=== PATIENT | male | born 1975 | race Caucasian/White ===

== ENCOUNTER 2023-10-08 10:17 | Emergency (ER) | payer BC ==
[2023-10-08 11:28] VITALS: TEMP 98.1
--- NOTE | 2023-10-08 11:51 | ED ---
General Adult HPI - General Chief complaint: GI Bleed Stated complaint: Rectal bleeding Time Seen by Provider: 10/08/23 11:50 Source: patient, RN notes reviewed Mode of arrival: ambulatory Limitations: no limitations - History of Present Illness Initial comments: 47-year-old male presenting to the ER with chief complaint of rectal bleeding. Patient states this morning while having a bowel movement he noticed bright red blood and clots in the toilet. He denies any pain or straining bowel movement. No blood thinner use. Patient states he went to put on his work attire which include khaki pants. He states blood soaked through his pants. He think it is a hemorrhoid but denies any history of hemorrhoids. Denies any chest pain, shortness of breath, abdominal pain, urinary complaints constipation/diarrhea. - Related Data Previous Rx's Medication Instructions Recorded Lidocaine Viscous 2% [Xylocaine 1 ml MUCOUS MEM DAILY #15 ml 10/08/23 Viscous] Allergies Allergy/AdvReac Type Severity Reaction Status Date / Time No Known Allergies Allergy Verified 10/08/23 11:41 Review of Systems ROS Statement: Those systems with pertinent positive or pertinent negative responses have been documented in the HPI. ROS Other: All systems not noted in ROS Statement are negative. Past Medical History Past Medical History: No Reported History History of Any Multi-Drug Resistant Organisms: None Reported Past Surgical History: Tonsillectomy Past Psychological History: No Psychological Hx Reported Smoking Status: Never smoker Past Alcohol Use History: None Reported Past Drug Use History: None Reported General Exam Limitations: no limitations General appearance: alert, in no apparent distress Head exam: Present: atraumatic, normocephalic, normal inspection Respiratory exam: Present: normal lung sounds bilaterally. Absent: respiratory distress, wheezes, rales, rhonchi, stridor Cardiovascular Exam: Present: regular rate, normal rhythm, normal heart sounds. Absent: systolic murmur, diastolic murmur, rubs, gallop, clicks GI/Abdominal exam: Present: soft, normal bowel sounds. Absent: distended, tenderness, guarding, rebound, rigid Rectal exam: Present: normal rectal tone, hemorrhoids (Thrombosed external hemor rhoid) Neurological exam: Present: alert, oriented X3, CN II-XII intact Skin exam: Present: warm, dry, intact, normal color. Absent: rash Course Vital Signs 10/08/23 10/08/23 10:43 12:27 Temperature 98.1 F Pulse Rate 72 78 Respiratory 16 18 Rate Blood Pressure 153/88 129/70 O2 Sat by Pulse 95 98 Oximetry Medical Decision Making - Medical Decision Making Was pt. sent in by a medical professional or institution (, PA, SYSTEM DEVELOPMENT ENGINEER, urgent care, hospital, or [facility]...) When possible be specific @ -No Did you speak to anyone other than the patient for history (EMS, parent, family, police, friend...)? What history was obtained from this source @ -No Did you review nursing and triage notes (agree or disagree)? Why? @ -I reviewed and agree with nursing and triage notes Were old charts reviewed (outside hosp., previous admission, EMS record, old EKG, old radiological studies, urgent care reports/EKG's, [facility] records)? Report findings @ -No old charts were reviewed Differential Diagnosis (chest pain, altered mental status, abdominal pain women, abdominal pain men, vaginal bleeding, weakness, fever, dyspnea, syncope, headache, dizziness, GI bleed, back pain, seizure, CVA, palpatations, mental health, musculoskeletal)? @ -Differential GI Bleed: Esophageal varices, aortoenteric fistula, Louise- Ruiz, gastritis, peptic ulcer disease, diverticulosis, inflammatory bowel disease, hemorrhoids, fissure, colitis, malignancy, Meckels diverticulum, this is not meant to be an all-inclusive list. EKG interpreted by me (3pts min.). @ -None X-rays interpreted by me (1pt min.). @ -None done CT interpreted by me (1pt min.). @ -None done U/S interpreted by me (1pt. min.). @ -None done What testing was considered but not performed or refused? (CT, X-rays, U/S, labs)? Why? @ -None What meds were considered but not given or refused? Why? @ -None Did you discuss the management of the patient with other professionals (professionals i.e. , PA, SYSTEM DEVELOPMENT ENGINEER, lab, RT, psych nurse, school social worker, oil burner, teacher, chief merchandising officer, heel caser)? Give summary @ -No Was smoking cessation discussed for >3mins.? @ -No Was critical care preformed (if so, how long)? @ -No Were there social determinants of health that impacted care today? How? (Homelessness, low income, unemployed, alcoholism, drug addiction, transportation, low edu. Level, literacy, decrease access to med. care, long-term, rehab)? @ -No Was there de-escalation of care discussed even if they declined (Discuss DNR or withdrawal of care, Hospice)? DNR status @ -No What co-morbidities impacted this encounter? (DM, HTN, Smoking, COPD, CAD, Cancer, CVA, ARF, Chemo, Hep., AIDS, mental health diagnosis, sleep apnea, morbid obesity)? @ -None Was patient admitted / discharged? Hospital course, mention meds given and route, prescriptions, significant lab abnormalities, going to OR and other pertinent info. @ -Discharge. 47-year-old male presented to the ER with chief complaint of rectal bleeding. History and physical exam completed. Vitals stable. Patient in no signs of distress and nontoxic-appearing. Rectal exam chaperoned by Makenna Raman RN. Exam significant for a thrombosed external hemorrhoid with minimal active bleeding. Findings discussed with patient, all questions answered. Advise close follow-up with PCP and GI. Patient refused epi injection to control bleeding. Viscous lidocaine prescribed. Strict return parameters discussed. Patient discharged in stable condition with follow-up to PCP/GI, referral given. Patient verbally expressed understanding and agreement with care plan. Case discussed with ED attending, Dr. Bedolla. Undiagnosed new problem with uncertain prognosis? @ -No Drug Therapy requiring intensive monitoring for toxicity (Heparin, Nitro, Insulin, Cardizem)? @ -No Were any procedures done? @ -No Diagnosis/symptom? @ -Thrombosed external hemorrhoid Acute, or Chronic, or Acute on Chronic? @ -Acute Uncomplicated (without systemic symptoms) or Complicated (systemic symptoms)? @ -Uncomplicated Side effects of treatment? @ -No Exacerbation, Progression, or Severe Exacerbation? @ -No Poses a threat to life or bodily function? How? (Chest pain, [place], [place], pneumonia, PE, COPD, DKA, ARF, appy, cholecystitis, CVA, Diverticulitis, Homicidal, Suicidal, threat to staff... and all critical care pts) @ -No Disposition Clinical Impression: Thrombosed external hemorrhoid Disposition: HOME SELF-CARE Condition: Stable Instructions (If sedation given, give patient instructions): Hemorrhoids (DC) Additional Instructions: Please follow-up with PCP. I recommend sitz baths for symptom control. Return to the ER for any new or worsening symptoms. Prescriptions: Lidocaine Viscous 2% [Xylocaine Viscous] 1 ml MUCOUS MEM DAILY #15 ml Is patient prescribed a controlled substance at d/c from ED?: No Referrals: None,Stated [Primary Care Provider] - 1-2 days Rin Wallace MD [STAFF PHYSICIAN] - 1-2 days Forms: Area PCPs Time of Disposition: 12:20
[2023-10-08 12:55] VITALS: BP 129/70; PULSE 78; RESP 18
== END 2023-10-08 12:29 | disposition home or self-care (01) ==
LOC: EC 10:17
DX: K64.5 Perianal venous thrombosis (principal)
CPT/HCPCS: 99284

== ENCOUNTER 2024-07-11 09:12 | Day surgery (SDC) | payer BC ==
[2024-07-06 11:47] VITALS: BMI 31.6
[~2024-07-11 09:12] MED LIST: LACTATED RINGERS 1,000 ML IV SCH
[2024-07-11] MEDS ORDERED: LIDOCAINE 1% (10MG/ML) FOR IV START INTRADERMA PRN (09:55)
[2024-07-11 10:09] VITALS: RESP 16; TEMP 98.1
[2024-07-11] MEDS: IV FLUID CONTINUATION 1,000 ML IV ONE (10:18)
[2024-07-11] MEDS: LACTATED RINGERS 1,000 ML IV SCH (10:18)
[2024-07-11] MEDS ORDERED: PROPOFOL 10 MG/ML 20 ML VIAL IV ONE (10:45)
--- NOTE | 2024-07-11 10:48 | P.GSHP ---
History of Present Illness H&P Date: 07/11/24 Chief Complaint: Colon cancer screening 48-year-old male here for colonoscopy. He has not had 1 previously. No bowel complaints currently. In the past he has had some bright red blood per rectum. Not recently. No family history of colon cancer. Past Medical History Past Medical History: No Reported History History of Any Multi-Drug Resistant Organisms: None Reported Past Surgical History: Tonsillectomy Additional Past Surgical History / Comment(s): ear tubes Past Anesthesia/Blood Transfusion Reactions: No Reported Reaction Additional Past Anesthesia/Blood Transfusion Reaction / Comment(s): no blood transfusion Smoking Status: Never smoker - Past Family History Father Family Medical History: No Reported History Medications and Allergies Home Medications Medication Instructions Recorded Confirmed Type No Known Home Medications 05/08/24 07/06/24 History Allergies Allergy/AdvReac Type Severity Reaction Status Date / Time No Known Allergies Allergy Verified 07/06/24 11:48 Surgical - Exam Vital Signs Temp Pulse Resp BP Pulse Ox 98.1 F 85 16 136/70 94 L 07/11/24 10:00 07/11/24 10:00 07/11/24 10:00 07/11/24 10:07/11/24 10:00 Physical exam: General: Well-developed, well-nourished HEENT: Normocephalic, sclerae nonicteric Abdomen: Nontender, nondistended Extremities: No edema Neuro: Alert and oriented Assessment and Plan (1) Colon cancer screening Narrative/Plan: Will proceed with colonoscopy at this time. Current Visit: Yes Status: Acute Code(s): Z12.11 - ENCOUNTER FOR SCREENING FOR MALIGNANT NEOPLASM OF COLON SNOMED Code(s): 580702426
--- NOTE | 2024-07-11 11:00 | P.PCN ---
Date of Procedure: 07/11/24 Procedure(s) Performed: PREOPERATIVE DIAGNOSIS: Colon cancer screening POSTOPERATIVE DIAGNOSIS: Normal exam PROCEDURE: Colonoscopy ANESTHESIA: MAC SURGEON: Nikko Marinelli M.D. SPECIMENS: None ENDOSCOPIC PROCEDURE: The patient was placed on the endoscopy table in the left decubitus position. The Olympus colonoscope was inserted into the anus and passed under direct visualization to the base of the cecum. The appendiceal orifice was visualized. From that point the scope was slowly withdrawn inspecti ng all surfaces carefully. There were no neoplastic inflammatory or polypoid lesions throughout the cecum, ascending, transverse, descending, sigmoid and rectum. There was no visible diverticulosis noted. Digital rectal examination was normal. The patient was taken to the recovery room in stable condition per anesthesia guidelines. RECOMMENDATIONS: Resume diet. Repeat colonoscopy 10 years.
[2024-07-11 11:17] VITALS: BP 109/69; PULSE 71
== END 2024-07-11 11:33 ==
LOC: ORWHC2ENDO 09:12
PROVIDERS: ATTEND Surgery
DX: Z12.11 Encounter for screening for malignant neoplasm of colon (principal); Z98.890 Other specified postprocedural states
CPT/HCPCS: 45378; J2704